=== PATIENT | female | born 1985 | race Caucasian/White ===

== ENCOUNTER 2025-02-06 15:02 | Emergency (ER) | payer MEDICAID ==
[~2025-02-06] VITALS: Ht 167.6 cm; Wt 71.8 kg
[~2025-02-06 15:02] MED LIST: DICY10CA88 PO; IBUP-1984 PO; LORA-269 PO; MULT-1179 PO; ONDA4TAB6 PO
[2025-02-06 15:24] VITALS: TEMP 98.5
[2025-02-06 16:45] VITALS: PULSE 74; RESP 16
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
[2025-02-06 18:31] VITALS: BP 145/92; O2SAT 98
== END 2025-02-06 18:33 | disposition home or self-care (01) ==
LOC: ER 15:02
DX: S50.11XA Contusion of right forearm, initial encounter (principal); S50.12XA Contusion of left forearm, initial encounter; S80.212A Abrasion, left knee, initial encounter; S80.211A Abrasion, right knee, initial encounter; Z85.41 Personal history of malignant neoplasm of cervix uteri; Z86.0100 Personal history of colon polyps, unspecified; Z88.6 Allergy status to analgesic agent; Z88.8 Allergy status to other drugs, medicaments and biological substances; Y08.89XA Assault by other specified means, initial encounter; Y93.89 Activity, other specified; Y92.89 Other specified places as the place of occurrence of the external cause; Y99.8 Other external cause status
CPT/HCPCS: 93880; 99284

== ENCOUNTER 2025-03-09 14:37 | Emergency (ER) | payer MEDICAID ==
[~2025-03-09] VITALS: Ht 167.6 cm; Wt 68.6 kg
[2025-03-09 14:45] VITALS: BP 131/89; PULSE 97; RESP 15; O2SAT 100
--- NOTE | 2025-03-09 14:54 | Physician Documentation ---
History of Present Illness ~ Chief Complaint: Blurred Vision Stated Complaint: EYE INFECTION Time Seen by MD: 15:06 Primary Medical Doctor: Dr. Golden [facility] This 39-year-old female presents with pain and redness to her left eye, patient reports seen by [facility] diagnosed with an eye infection, she reports a noticed "an abscess" on her cornea and provided her a referral to an paint laboratory technician however she was not able to seen his paint laboratory technician due to insurance concerns, she is reporting blurred vision describing it as white blur she is looking through". Patient reports that she had placed two contacts in that eye three days ago because she was out of her normal prescription and thought doubling up on a prescription have her strength would work to correct her vision. Patient reports no fever or chills. Medication Reconciliation Allergies: Coded Allergies: aspirin (Verified Allergy, Mild, SENSATIVE STOMACH, 07/12/16) Scheduled Lorazepam (Ativan), 1 TAB PO Q8H Moxifloxacin Hcl Opth.* (Vigamox Opth.*), 1 DRP LEFTEYE Q Hour While Awake Multivitamins,Therapeutic* (Theragran-M*), 1 EACH PO DAILY, (Reported) Scheduled PRN Dicyclomine Hcl* (Bentyl*), 1 CAP PO TID PRN for abdominal cramps, (Reported) Ibuprofen* (Motrin*), 800 MG PO DAILY PRN for pain, (Reported) Ondansetron Hcl (Zofran), 1 TAB PO Q6H PRN for nausea Past Medical History Past Medical History: Diverticulosis, Hernia, Cervical Cancer/Dysplasia Other Past Surgical History: Colonic polyp removal Alcohol Use: None Drug Use: marijuana, methamphetamine Lives with: Family Lives In: Home Occupation: employed Review of Systems ROS Left eye pain as stated above in the HPI, otherwise all systems are reviewed and negative. Physical Exam Vital Signs: Temperature: 98.5, Source: Temporal, Heart Rate: 97, Respiratory Rate: 15, BP: 131/89, Pulse Oximetry: 100, Weight: 68.600 Physical Exam VITALS: Reviewed and as above. GENERAL: Alert, nontoxic appearing, no apparent distress. HEENT: PERRLA, EOMI without pain. Fluorescein stain stain initially revealed a intact contact lens which patient reports has been in place for at least three days, after removal of contact lens area fluorescein uptake to the 9 o'clock position of the cornea was observed, light was applied a 90 degree angle to the cornea demonstrating area of passes a at the 9 o'clock position of cornea RESPIRATORY: No increased work of breathing, no respiratory distress, speaking in full clear sentences Progress Progress Note [id number] Juarez paint laboratory technician who minutes patient's be seen in his clinic within the next 30 minutes or 1st thing tomorrow morning, request I place patient on moxifloxacin Q hour while awake. Results/Orders Results/Orders Orders - TIERNEY BLANCO Visual Acuity (03/09/25 ) Eye Procedure (03/09/25 14:56) Completed Orders - TIERNEY BLANCOP Proparacaine Ophth Solution (Alcaine Oph (03/09/25 15:00) Vital Signs 03/09/25 03/09/25 14:45 16:07 Temp 98.5 98.5 Pulse 97 Resp 15 B/P (MAP) 131/89 Pulse Ox 100 Medical Decision Making Findings This 39-year-old female presented with eye pain to her left eye for the past two days, physical exam demonstrated retained contact lens and what appeared to be a corneal ulcer or hypopyon, patient was otherwise well-appearing and in discussion with local paint laboratory technician patient will need to be seen by him at his office in the next 24 hours, ophthalmology reports they will see the patient if she is able to make it to the office in the next 30 minutes otherwise we will see her 1st thing in the morning. Patient discharged to immediately follow up with Ophthalmology and provided a prescription for moxifloxacin should she not be able to make it to the office in the next 30 minutes, patient has verbalized understanding of need to take the antibiotic eyedrops every hour awake if she is not able to make it to the paint laboratory technician appointment this afternoon. Patient is otherwise well-appearing with stable vital signs. Eye Diff. Dx: Considerations: Include: [place], Conjuctivits-allergic, Conjuctivitis-bacterial, Corneal abrasion, Corneal laceration, Foreign body- conjuctiva, Foreign body-corneal, Foreign body-intraocular, Foreign body-lid, Hordeolum, Iritis, Orbital cellulitis, Periobital cellulitis, Subconjunctival hem, Ultraviolet keratitis, Uveitis, Vitreous hemorrhage Departure Time of Disposition: 16:01 Disposition: 01 HOME / SELF CARE / HOMELESS Impression: Primary Impression: Pain, eye, left Condition: Improved Discharge Instructions: Corneal Ulcer, Blurred Vision, Adult Additional Instructions: Please present to Dr. Juarez is office at [address] [place] [address] as soon as possible, he will see you if you can make it there by 4:30 p.m. today or will see you 1st thing in the morning tomorrow if you are unable to make it today. If you are unable to make it to his office today please start taking the prescribed antibiotic every hour while awake. Do not wear contacts until seen by Dr. Juarez. Please also follow up with your primary care provider in the next few days. Please return to the emergency department for any new or worsening concerning symptoms. Referrals: NO PRIMARY CARE PROVIDER (PCP) Prescriptions Moxifloxacin Hcl Opth.* (Vigamox Opth.*) 3 Ml Bottle 1 DRP LEFTEYE Q Hour While Awake for 7 Days, #1 BOTTLE Prov: TIERNEY BLANCO 03/09/25 Education Educated: Patient Educated regarding: diagnosis, treatment, prognosis, need for follow up Additional Comment Medical Screen Exam History: This 39-year-old female presents with pain and redness to her left eye, patient reports seen by [facility] diagnosed with an eye infection, she reports a noticed "an abscess" on her cornea and provided her a referral to an paint laboratory technician however she was not able to seen his paint laboratory technician due to insurance concerns, she is reporting blurred vision describing it as white blur. Exam: VITALS: Reviewed and as above. GENERAL: Alert, nontoxic appearing, no apparent distress. HEENT: Left conjunctiva significantly injected, no periorbital swelling RESPIRATORY: No increased work of breathing, no respiratory distress, speaking in full clear sentences Signature Scribe Signature: No scribe Attestation: The note accurately reflects work and decisions made by me.ANTWAN Patton 03/10/25 03:47 TIERNEY BLANCO Mar 09, 2025 14:54
[2025-03-09] MEDS: proparacaine 0.5% ophthalmic drops 15ml LEFTEYE ONE (15:03)
[2025-03-09] MEDS ORDERED: moxifloxacin 0.5% ophthalmic drops 3ml LEFTEYE SCH (16:00)
[2025-03-09] MEDS ORDERED: MOXI3DRO25 LEFTEYE (16:04)
[2025-03-09 16:07] VITALS: TEMP 98.5
== END 2025-03-09 16:10 | disposition home or self-care (01) ==
LOC: ER 14:38
DX: H57.12 Ocular pain, left eye (principal); F12.90 Cannabis use, unspecified, uncomplicated; F15.90 Other stimulant use, unspecified, uncomplicated; Z85.41 Personal history of malignant neoplasm of cervix uteri; Z88.6 Allergy status to analgesic agent; Z79.899 Other long term (current) drug therapy
CPT/HCPCS: 99283